=== PATIENT | female | born 1975 | race Caucasian/White ===

== ENCOUNTER 2020-10-03 10:44 | Emergency (ER) | payer OTHER, SELFPAY ==
--- NOTE | ~2020-10-03 | XR_ITS ---
EXAMINATION: XR chest 2V EXAM DATE: 10/03/2020 12:00 INDICATION: chest pain, sob-anterior chest pain radiating to right side since Saturday. TECHNIQUE: Frontal and lateral projections of the chest obtained and reviewed. There is no prior nadeen dy for comparison. FINDINGS: The lungs are clear. There are no pleural effusions. The cardiomediastinal silhouette is within normal limits. There is no pneumothorax suspected. The bones and soft tissues are unremarkab le. IMPRESSION: No acute cardiopulmonary findings. Reviewed, dictated and finalized at location A. ARY INFORMATION TECHNICIAN
--- NOTE | 2020-10-03 11:07 | ECG_ITS ---
Measurements Intervals [place] Rate: 104 P: 46 RI: 116 QRS: -3 QRSD: 89 T: 16 QT: 346 QTc: 457 Interpretive Statements SINUS TACHYCARDIA WITH SHORT RI INTERVAL INCOMPLETE RIGHT BUNDLE BRANCH BLOCK BORDERLINE T WAVE ABNORMALITY- INFERIOR LEADS ABNORMAL ECG Electronically Signed On 10-03-2020 11:26:21 GRILL ATTENDANT by Ilya Nuñez D.O.
[2020-10-03 11:08] VITALS: BP 135/66; PULSE 106; RESP 14; TEMP 36.8; O2SAT 99
[2020-10-03 11:13] VITALS: PULSE 106
[2020-10-03] MEDS: ASPIRIN 81 MG CHEWABLE TABLET 324 MG PO (11:28)
[2020-10-03 11:29] LABS: Basophils Percent Auto 0.3 % (0.2-1.2); Eosinophils Percent Auto 0.5 % (0-4.4); Hematocrit 38.8 % (37.0-47.0); Hemoglobin 12.6 g/dL (12.0-15.0); Immature Granulocyte Absolute 0.03 K/mm3 (0.00-0.031); Immature Granulocyte Percent A 0.3 % (0-0.5); Lymphocytes Absolute Auto 1.29 K/mm3 (0.9-3.2); Lymphocytes Percent Auto 14.6 % (18.3-44.2); Mean Corpuscular HGB Conc 32.5 g/dl (32-36); Mean Corpuscular Hemoglobin 27.1 pg (26-34); Mean Corpuscular Volume 83.4 fl (80-100); Mean Platelet Volume 9.4 fl (7.4-10.4); Monocytes Absolute Auto 0.5 K/mm3 (0.1-0.6); Monocytes Percent Auto 6.1 % (2.6-8.5); Neutrophils Absolute Auto 6.9 K/mm3 (1.3-6.7); Neutrophils Percent Auto 78.2 % (45.5-73.1); Platelet Count Result 312 k/mm3 (150-375); Red Blood Count 4.65 M/mm3 (4.2-5.4); Red Cell Distribution Width 13.6 % (11.5-14.5); White Blood Count 8.8 K/mm3 (4.5-10.0)
--- NOTE | 2020-10-03 11:35 | ED.ABDPAIN ---
HPI - Abdominal Pain General Chief Complaint: Chest Pain Stated Complaint: chest discomfort Time Seen by Provider: 10/03/20 10:59 History of Present Illness HPI narrative: Substernal burning chest pain with shooting pains that radiate to the right chest and scapula for several days. Worse today. She had a gall bladder US last week, but does not know the results. I spoke with Dr. Izaguirre and the ultrasound was negative. She also has some SOB which she believes is due t her anxiety. She has chronic anxiety, which is worse nw due to several external circumstances. Related Data Home Medications Medication Instructions Recorded Confirmed linaclotide [Linzess] mcg DAILY 10/03/20 Allergies Allergy/AdvReac Type Severity Reaction Status Date / Time No Known Allergies Allergy Mild Verified 10/03/20 11:15 Review of Systems Review of Systems: All systems reviewed & are unremarkable except as noted in HPI and below Constitutional: Constitutional: Denies chills, Denies fever(s) and Denies weakness ENT: Denies sore throat Cardiovascular: Cardiovascular: Reports chest pain and Reports rapid heart rate Respiratory: Respiratory: Reports dyspnea Gastrointestinal: Gastrointestinal: Reports abdominal pain, Denies constipation, Denies diarrhea, Reports nausea and Denies vomiting Genitourinary: Genitourinary: Denies hematuria and Denies dysuria Musculoskeletal: Musculoskeletal: Denies myalgias Neurologic: Denies numbness and Denies weakness Psychiatric: Psychiatric: Reports anxiety [facility] Past Medical History Medical History (Updated 10/03/20 @ 13:14 by Kris Penny MD) Anxiety Social History Social History (Updated 10/03/20 @ 13:14 by Kris Penny MD) Smoking status: Never smoker Gender identity (if verbalized by the patient): Female Exam Const: General: healthy appearing, no acute distress and alert Orientation/consciousness: patient oriented x3 HENMT: Head: normal to inspection Neck: Neck: normal visual inspection and no lymphadenopathy Chest: Chest palpation & inspection: no tenderness Resp: Effort & Inspection: normal respiratory effort Auscultation: clear to auscultation bilaterally, no rales, no rhonchi and no wheezes Cardio: Jugular venous distension: no JVD Rate: regular rate Rhythm: regular rhythm Heart sounds: no murmurs GI: Inspection: non-distended GI Palp: Yes Soft to palpation and No Tenderness to palpation present (GI) Skin: General skin exam: normal color Neuro: General: patient oriented x3, moves all extremities, no focal motor deficits and CN's II-XI intact bilaterally Speech: normal speech Gait exam (Neuro): Normal gait present Extrem: General: normal to inspection and no edema Psych: Appearance: well kempt Affect: Anxious affect present Course Vital Signs Vital signs: Vital Signs Temperature 36.8 C 10/03/20 11:08 Pulse Rate 106 H 10/03/20 11:08 Respiratory Rate 14 10/03/20 11:08 Blood Pressure 135/66 10/03/20 11:08 Pulse Oximetry 99 10/03/20 11:08 Temperature 36.8 C 10/03/20 11:08 Pulse Rate 109 H 10/03/20 12:35 Respiratory Rate 14 10/03/20 12:35 Blood Pressure 155/83 H 10/03/20 12:35 Pulse Oximetry 98 10/03/20 12:35 MDM - Abdominal Pain MDM Narrative Medical decision making narrative: GERD, gastritis, ulcer, anxiety Medical Records Attestation: I reviewed the patient's medical records. Lab Data Attestation: I reviewed the patient's lab results. Result diagrams: 10/03/20 11:19 10/03/20 11:19 Labs: Lab Results 10/03/20 10/03/20 10/03/20 Range/Units 11:19 11:19 11:19 WBC 8.8 (4.5-10.0) K/mm3 RBC 4.65 (4.2-5.4) M/mm3 Hgb 12.6 (12.0-15.0) g/dL Hct 38.8 (37.0-47.0) % MCV 83.4 (80-100) fl MCH 27.1 (26-34) pg MCHC 32.5 (32-36) g/dl RDW 13.6 (11.5-14.5) % Plt Count 312 (150-375) k/mm3 MPV 9.4 (7.4-10.4) fl Immature Gran % (Aut
[2020-10-03 11:37] LABS: INR 0.9; Prothrombin Time 13.1 Seconds (11.1-14.7)
[2020-10-03 11:39] LABS: Anion Gap 12 mmol/L (8-16); Blood Urea Nitrogen 8 mg/dL (7-17); Calcium 9.4 mg/dL (8.4-10.2); Carbon Dioxide 25 mmol/L (22-30); Chloride 106 mmol/L (98-107); Estimated CRCL calculation 79 ml/min; Estimated Glomerular Filt Rate > 60; Glucose 95 mg/dL (65-105); Potassium 3.9 mmol/L (3.4-5.0); Sodium 143 mmol/L (137-145)
[2020-10-03 11:51] LABS: Troponin I < 0.012 ng/mL (0.000-0.034)
[2020-10-03 12:13] LABS: Alanine Aminotransferase 13 U/L (4-35); Albumin Level 4.6 g/dL (3.5-5.1); Alkaline Phosphatase 84 U/L (38-126); Aspartate Amino Transferase 25 U/L (14-36); Bilirubin,Total 0.5 mg/dL (0.2-1.3)
[2020-10-03 12:35] VITALS: BP 155/83; PULSE 109; RESP 14; O2SAT 98
[2020-10-03 12:43] LABS: D Dimer 0.27 ug/mL (<0.48)
[2020-10-03 13:47] VITALS: BP 136/76; PULSE 95; RESP 9; O2SAT 97
== END 2020-10-03 13:48 | disposition home or self-care (01) ==
PROVIDERS: Emergency Provider Emergency Medicine; PCP Internal Medicine
DX: R07.89 Other chest pain (principal); F41.9 Anxiety disorder, unspecified; I45.10 Unspecified right bundle-branch block; R00.1 Bradycardia, unspecified; R94.31 Abnormal electrocardiogram [ECG] [EKG]
CPT/HCPCS: 36415; 71046; 80048; 80076; 84484; 85025; 85380; 85610; 85730; 93005; 99284; A9270

== ENCOUNTER 2022-06-01 09:17 | Outpatient (CLI) | payer OTHER, SELFPAY | END 2022-06-01 09:18 | disposition home or self-care (01) | LOC: ANHSURGERY 09:24 | PROVIDERS: PCP Internal Medicine; Visit Provider Obstetrics & Gynecology | DX: N85.2 Hypertrophy of uterus (principal); Z01.818 Encounter for other preprocedural examination | CPT/HCPCS: 36415; 86850; 86900; 86901 ==

== ENCOUNTER 2022-06-06 11:00 | Inpatient (IN) | payer OTHER, SELFPAY ==
[2022-05-29 15:22] VITALS: BMI 24.5
--- NOTE | 2022-05-29 15:29 | PC.NURSE ---
Report to the Outpatient Waiting Room, entrance under the green pavilion located off [facility], at time _06:00_ on date __06-06-22__. OR Time: __07:30AM__. - You and your visitor will be asked a series of questions to screen for COVID 19 for your protection. - Only one visitor is allowed at this time. - The patient visitor is requested to leave or wait in car when not with patient. - A mask is required within the hospital. Patients may have clear liquids (water, carbonated beverages, clear teas, apple juice) until 3 hours prior to surgery with a maximum of 20 ounces. NOTHING TO DRINK AFTER 4:30AM DAY OF SURGERY. - No food from midnight until time of surgery Take the following medications with a SIP of water the morning of surgery: N/A Medications to discontinue per physician VITAMINS/SUPPLEMENTS Date to take last tdyu [id number] Please no make-up, nail yemeni, hairspray, perfume, deodorant, or body powder the day of surgery. No jewelry (including any body piercings) or valuables the day of surgery, leave them at home. Please take a shower or bath the night before, or the morning of, surgery with an antibacterial soap. Wear comfortable, loose fitting clothing. - Jewelry must be removed prior to entering the operating room. Rings and piercings that are not removed may be cut off. - The hospital will not accept responsibility for valuables. - Please leave all valuables, including medications, at home the day of surgery. If you are going home after surgery, a licensed coach tour driver must drive you home. - NO public transportation without another adult. - We recommend that an adult stay with you for 24 hours following discharge. - We also recommend that you do not drive, make important decision, drink alcoholic beverages, or take any drugs that were not prescribed by your health care provider for at least 24 hours after your discharge time. Follow any additional instructions given to you from your surgeon. If you or anyone in your household have experienced Covid symptoms in the past week, please notify your surgeon or the nurse liaison at the phone number below for possible testing. Telephone instructions given to ____PATIENT and asked if any additional questions and then verbalized understanding. Patient advised to call surgeon office or pre surgery nurse liaison [phone] if any additional questions.
--- NOTE | 2022-06-05 09:09 | PM.IMHP ---
H&P: HPI History of Present Illness Date/Time: 06/05/22 09:09 46-year-old 2 para 2003 female presents with complaints of menstrual cycles lasting 5-7 days with 2-3 days very heavy with clotting cramping where she needs to change a pad and and a tampon every 1-2 hours, and still bleeds through at times. This is becoming worse over the past number of months to year and strongly desires therapy for this. She has had a recent ultrasound which shows enlarged uterus at 14x8x8, in addition there was a 6cm fibroid as well. Prep discussed multiple options and she does desire to proceed operative management in the form of hysterectomy with ovarian preservation. Due to previous C-sections there is the potential for supracervical procedure based on adhesions in the area of the cervix but this will be determined at the time of the procedure, she is aware of this possibility. Chief Complaint: Symptomatic uterine fibroid Review of Systems Review of Systems: All systems reviewed & are unremarkable except as noted in HPI and below PMFSH Past Medical History Medical History Anxiety History of IBS Migraines Surgical History Surgical History Delivery by section (06/17/08) primary c/s Delivery by section (04/06/15) rpt c/s H/O tubal ligation (~04/06/15) Social History Social History Smoking status: Never smoker Second hand tobacco smoke exposure: Yes ([employer]MENT [employer]ESTER) Alcohol intake: never Substance use: never Substance use type: does not use Gender identity (if verbalized by the patient): Female Spiritual care concerns: No Meds Home Medications and Allergies Home Medications Medication Instructions Recorded Confirmed Type famotidine 20 mg tablet (Pepcid) 20 mg PO DAILY #30 tabs 10/03/20 05/29/22 Rx linaclotide 72 mcg capsule 72 mcg PO PRN PRN Constipation 10/03/20 05/29/22 History (Linzess) cholecalciferol (vitamin D3) 25 25 mcg PO DAILY 05/29/22 05/29/22 History mcg (1,000 unit) capsule Allergies Allergy/AdvReac Type Severity Reaction Status Date / Time No Known Allergies Allergy Mild Verified 05/29/22 15:17 Exam Const: General: cooperative, healthy appearing and comfortable Resp: Effort & Inspection: normal respiratory effort Auscultation: clear to auscultation bilaterally Cardio: Rate: regular rate Rhythm: regular rhythm GI: Inspection: normal to inspection and incision : External Female Exam: normal external appearance Speculum Exam - Vagina: normal appearance of the vagina Speculum Exam - Cervix: normal appearance of the cervix Bimanual exam- vagina & uterus: enlarged ( 14-16 week size ) Bimanual Exam- Adnexa, other: normal adnexae Assessment and Plan Assessment and plan (1) Menometrorrhagia: Code(s): N92.1 - Excessive and frequent menstruation with irregular cycle Status: Acute Assessment and Plan: Proceed with abdominal hysterectomy with ovarian preservation. Whether this will be supracervical or total will be based on findings at time of the procedure patient is aware that she may have the cervix removed or may be retained depending on the amount of adhesions noted intraoperatively. (2) Uterine fibroid: Code(s): D25.9 - Leiomyoma of uterus, unspecified Status: Acute
--- NOTE | 2022-06-05 14:59 | P.PNAN_ITS ---
Anes - Initial Pre Proc Eval Procedure: Operation Date: 06/06/22 07:30 Proposed Procedures p Total Abdominal Hysterectomy - Harris Adkins MD Date/Time: 06/05/22 14:59 Surgeon: Harris Adkins MD Pre Op Diagnosis: Enlarged Uterus with Fibroid Patient Data Age: 46 Gender: F Height: 1.57 m Weight: 61 kg Allergies Allergy/AdvReac Type Severity Reaction Status Date / Time No Known Allergies Allergy Mild Verified 06/06/22 06:31 Home Medications Medication Instructions Recorded Confirmed Type famotidine 20 mg tablet (Pepcid) 20 mg PO DAILY #30 tabs 10/03/20 06/06/22 Rx linaclotide 72 mcg capsule 72 mcg PO PRN PRN Constipation 10/03/20 06/06/22 History (Linzess) cholecalciferol (vitamin D3) 25 25 mcg PO DAILY 05/29/22 06/06/22 History mcg (1,000 unit) capsule Patient hx anesthesia problems: none Family hx anesthesia problems: none Results Review: All pre-operative results and documents have been reviewed as part of the pre- operative evaluation. [facility] Past Medical History Medical History (Updated 06/05/22 @ 15:00 by Anthony Gonsalves MD) Anxiety History of IBS Leiomyoma Menometrorrhagia Migraines Pelvic pain Surgical History Surgical History Delivery by section (06/17/08) primary c/s Delivery by section (04/06/15) rpt c/s H/O tubal ligation (~04/06/15) Social History Social History Smoking status: Never smoker Second hand tobacco smoke exposure: Yes ([employer]) Alcohol intake: never Substance use: never Substance use type: does not use Living arrangements: with family Gender identity (if verbalized by the patient): Female Spiritual care concerns: No Anes - Eval Final PreProcedure Day of Procedure 06/05/22 14:59 Patient weight: normal Heart: regular rate and rhythm Lungs: clear to auscultation and normal air movement Airway: Mallampati scale class II Neurological: alert and oriented Last oral intake: >/= 8 hours ASA classification: II Emergent: no Anesthetic plan: proceed Anesthesia type and monitoring: general ETT Results Review: All pre-operative results and documents have been reviewed as part of the pre- operative evaluation. Informed Consent: The patient's anesthetic plan and its attendant risks and benefits were discussed with the patient/family/POA. Questions were solicited and answers provided to the satisfaction of the patient/family/POA.
[2022-06-06] VITALS (16 sets, daily range): BP systolic 116–150; BP diastolic 61–87; PULSE 80–114; RESP 12–18; TEMP 36.3–37.3; O2SAT 95–100
--- NOTE | ~2022-06-06 | CT_ITS ---
EXAMINATION: CT abdomen pelvis w con DATE: 06/07/2022 09:57 INDICATION: Low hemoglobin and hematocrit post hysterectomy. TECHNIQUE: Computed tomography (CT) of the abdomen and pelvis was performed with 100 CC Omnipaque 300 intravenous contrast. Automated exposure control and iterative reconstruction technique were employe d. Exam dose: 307.96 mGy-cm total exam DLP. COMPARISON: None. FINDINGS: There is mild atelectasis in the lower lobes. Normal heart size. No pericardial or pleural effusion. There is mild perihepatic, moderate perisplenic, Morison's pouch and bilateral right greater than lef t paracolic gutter fluid collection. The gallbladder is distended. No gallbladder wall thickening or pericholecystic fluid or fat strandin g. No bile duct or pancreatic duct dilatation. No hepatic, splenic, pancreatic, and adrenal or renal space-occupying mass lesion or laceration; ther e is an approximately 12 mm cyst at the lower pole of the right kidney. There is atherosclerotic calcification but normal caliber of the abdominal aorta. No intraperitoneal or retroperitoneal or pelvic mass lesion or adenopathy is noted. The urinary bladder is unremarkable except for slight amount of air within the lumen.. Status post hysterectomy. Likely postoperative intraperitoneal air. There is very prominent infraumbilical soft tissue thickening within the left and right rectus sheath s, likely due to hematoma, in addition to subcutaneous emphysema within the anterior abdominal wall m usculature and anterior lower abdominal and pelvic wall subcutaneous fat. Small fat and air-containing umbilical hernia. No bowel obstruction is detected. Included skeletal structures are unremarkable. IMPRESSION: Probable mild postoperative intraperitoneal free air. Mild fluid around the liver, spleen and in Morison's pouch and the paracolic gutters Prominent soft tissue swelling within the infraumbilical rectus sheaths, likely due to hematoma. Ther e is subcutaneous emphysema within the musculature and subcutaneous adipose tissues of the lower ante rior abdominal and pelvic pitts Reviewed, dictated and finalized at Location A. Reviewed, dictated and finalized at location B. IMPRESSION: Probable mild postoperative intraperitoneal free air. Mild fluid around the liver, spleen and in Morison's pouch and the paracolic gu tters Prominent soft tissue swelling within the infraumbilical rectus sheaths, likely due to hematoma. There is subcutaneous emphysema within the musculature and jacob bcutaneous adipose tissues of the lower anterior abdominal and pelvic pitts
[2022-06-06] MEDS: ACETAMINOPHEN 500 MG TABLET 1000 MG PO (06:31)
[2022-06-06] MEDS: KETOROLAC 15 MG/ML VIAL (*BKC) IV PUSH (06:42)
[2022-06-06] MEDS: LACTATED RINGERS 1,000 ML 30 ML IV CONT ×2 (06:42→09:03)
[2022-06-06] MEDS: MIDAZOLAM HCL (*CRX) 2 MG/2 ML VIAL IV PUSH (07:11)
--- NOTE | 2022-06-06 07:18 | WPDHPUPDATE1 ---
History and Physical Update Update Date/Time: 06/06/22 07:18 History and Physical has been reviewed, including an updated exam of the patient. There are NO changes in the patient's condition. Risks, benefits, and alternatives have been discussed and questions answered. Patient agrees to proceed with procedure.
[2022-06-06] MEDS: ceFAZolin 2 GM/D5W 50 ML 2 GM/50 ML BAG IVPB (07:27)
--- NOTE | 2022-06-06 08:52 | W.PM.PROC2 ---
Procedure Note - Detailed Date of Procedure 06/06/22 Pre-op Diagnosis Enlarged Uterus with Fibroid Post-op Diagnosis Same Procedure Performed Total abdominal hysterectomy with bilateral salpingectomy (cervix and uterus with a combined weight of 360 g) Surgeon Harris Adkins MD Anesthesia General Findings 1. Enlarged globular uterus with fundal fibroid. 2. Bladder adhesions to the anterior cervix 3. Ovaries without abnormality Description of Procedure Patient was prepped and draped in the usual manner for this procedure. Pfannenstiel incision was made which was readily carried down to the fascia and extended bilaterally the length of the skin incision. Superiorly and inferiorly the fascia was dissected away from the rectus muscles and the peritoneum was readily entered with enlarged uterus immediately encountered. The uterus was delivered through the incision with findings as noted above. Round ligament bilaterally clamped cut and tied and anterior portion of the broad ligament was incised down to bladder which was sharply dissected off of the anterior portion of the cervix and adhesions were sharply carefully taken down to allow the bladder to be free of the upper portion of the cervix. Broad ligament was then incised and curved Damaris clamps were placed over the utero-ovarian vessels and this was clamped cut tied rendered hemostasis bilaterally. Uterine vessels were then skeletonized and curved Damaris clamps placed across and again these clamped cut and tied and rendered hemostatic. The enlarged uterus removed at the cervical junction. Once this had been performed the bladder was sharply dissected off the rest of the anterior portion of the cervix and straight Damaris clamps were used on the paracervical tissue including the uterosacral ligament. Curved Magaly clamps were then placed across vaginal cuff and the cervix was removed. Vaginal cuff was closed using 0 Vicryl running interlocking manner to approximate and render hemostatic. Evaluation revealed no bleeding and no other abnormalities were appreciated. Irrigation was undertaken and at this point all subfascial incisions were inspected with no bleeding noted. Fascia was approximated using 0 Vicryl from the left angle to the midline in from the right angle to midline with good approximation noted. Subcutaneous tissue approximated 0 plain suture and skin was approximated using 4-0 Monocryl with skin glue. Patient was then sent to recovery room in stable condition. Estimated Blood Loss 200 Drains Yes (Stoner catheter) Pathology Yes (Uterus and cervix with a combined weight of 360 g) Disposition PACU [facility] Billing Surgery - Charge Forward: Surgery Billing
[2022-06-06] MEDS: fentaNYL CITRATE INJ (*CRX) 100 MCG/2 ML VIAL 25 MCG IV PUSH ×8 (09:08→09:57)
[2022-06-06] MEDS: diphenhydrAMINE HCl INJ 50 MG/ML VIAL 25 MG IV PUSH (09:21)
[2022-06-06] MEDS: ONDANSETRON INJ 4 MG/2 ML VIAL IV PUSH (09:51)
[2022-06-06] MEDS: HYDROmorphone HCL INJ (*CRX) 1 MG/ML SYR 0.5 MG IV PUSH ×2 (10:07→10:20)
[2022-06-06] MEDS: SCOPOLAMINE 1.5 MG PATCH TRANSDERM (10:14)
--- NOTE | 2022-06-06 11:05 | PC.NURSE ---
This patient, Rena Pizarro, was received from PACU via bed on 06/06/22 at 1105. Patient/family oriented to unit policies and routines
[2022-06-06] MEDS: KETOROLAC 30 MG/ML VIAL (*BKC) IV PUSH ×3 (11:34→23:25)
[2022-06-06] MEDS: METOCLOPRAMIDE HCL INJ 10 MG/2 ML VIAL IV PUSH ×2 (11:34→19:23)
[2022-06-06] MEDS: DEXTROSE 5%/0.45% SOD CHL 1,000 ML 125 ML IV CONT ×2 (11:35→19:20)
[2022-06-06] MEDS: MORPHINE SULFATE PCA (*CRX) 30 MG/30 ML SYR IV CONT (12:52)
[2022-06-06] MEDS: HYDROcodone/acetaminophen (*CRX) 10-325 MG TABLET 1 TAB PO ×4 (14:58→23:25)
[2022-06-07] VITALS (13 sets, daily range): BP systolic 105–126; BP diastolic 45–60; PULSE 104–120; RESP 16–18; TEMP 36.4–37.4; O2SAT 97–100
[2022-06-07] MEDS: HYDROcodone/acetaminophen (*CRX) 10-325 MG TABLET 1 TAB PO ×5 (03:20→21:31)
[2022-06-07] MEDS: KETOROLAC 30 MG/ML VIAL (*BKC) IV PUSH (05:27)
[2022-06-07] MEDS: SIMETHICONE 80 MG TAB.CHEW PO ×4 (07:45→21:31)
[2022-06-07 08:07] LABS: Basophils Percent Auto 0.2 % (0.2-1.2); Immature Granulocyte Absolute 0.08 K/mm3 (0.00-0.031); Immature Granulocyte Percent A 0.6 % (0-0.5); Lymphocytes Absolute Auto 1.52 K/mm3 (0.9-3.2); Lymphocytes Percent Auto 10.7 % (18.3-44.2); Mean Corpuscular HGB Conc 29.3 g/dl (32-36); Mean Corpuscular Hemoglobin 19.9 pg (26-34); Mean Platelet Volume 9.2 fl (7.4-10.4); Monocytes Absolute Auto 1.6 K/mm3 (0.1-0.6); Monocytes Percent Auto 11.5 % (2.6-8.5); Platelet Count Result 338 k/mm3 (150-375); Red Blood Count 2.56 M/mm3 (4.2-5.4); Red Cell Distribution Width 19.9 % (11.5-14.5); White Blood Count 14.3 K/mm3 (4.5-10.0)
[2022-06-07 08:52] LABS: Hematocrit 17.4 % (37.0-47.0); Hemoglobin 5.1 g/dL (12.0-15.0)
--- NOTE | 2022-06-07 09:04 | PM.GYNPNOP ---
GUI DEVELOPER - A/P Assessment and plan (1) Acute postoperative anemia due to expected blood loss: Code(s): D62 - Acute posthemorrhagic anemia Status: Acute Assessment and Plan: lab this morning shows a hemoglobin of 5. This is definitely inconsistent with amount of blood loss at the time of surgery so concern for intraoperative hematoma is significant. Imaging will be performed to assess for hematoma and size. Depending on findings at this point likely will need re-exploration, either via laparoscopy or reopening of her abdominal incision. This was briefly discussed with patient this morning prior to confirmation of the low level so have not discussed plan after imaging, will do so once the results are noted. Postoperative Procedures: Procedures Operation Date: 06/06/22 07:30 Actual Procedure Side Surgeon p Total Abdominal Hysterectomy with Ovarian Preservation Not Applicable Harris Adkins MD Time Spent With Patient Time: Total time spent is greater than 50% in coordination of care (as documented) at patient's floor/unit and/or counseling patient: Time with patient: less than 15 minutes GUI DEVELOPER- PN:Subj Post-Op Subjective Date/time seen: 06/07/22 09:04 patient seen this morning 1 day postop Status post KAYLI. Pain is reasonably well controlled though she did have a lot of pain and nausea and vomiting yesterday afternoon. Thus far she has tolerated a regular diet though appetite has been minimal. Catheters out this morning and she has yet to urinate. Did have some lightheadedness when getting to the side of the bed this morning. Exam GI: Inspection: normal to inspection and incision ( Bandage dry) Auscultation: Hypoactive bowel sounds present GUI DEVELOPER - PN: Obj Data Vital Signs Vital Signs: Vital Signs - 24 hr 06/06/22 09:15 06/06/22 09:30 06/06/22 09:45 Temperature Pulse Rate 82 84 94 Respiratory Rate 14 14 14 Blood Pressure 133/78 142/75 H 145/79 H Pulse Oximetry 98 96 97 Oxygen Delivery Simple Face Mask Nasal Cannula Nasal Cannula Oxygen Flow Rate 6 2 2 06/06/22 10:00 06/06/22 10:15 06/06/22 10:30 Temperature Pulse Rate 88 83 85 Respiratory Rate 12 12 12 Blood Pressure 138/75 148/84 H 150/87 H Pulse Oximetry 99 98 98 Oxygen Delivery Nasal Cannula Nasal Cannula Nasal Cannula Oxygen Flow Rate 2 2 2 06/06/22 10:45 06/06/22 10:55 06/06/22 13:01 Temperature 98.4 F Pulse Rate 89 90 Respiratory Rate 12 16 16 Blood Pressure 142/83 H 142/83 H Pulse Oximetry 99 98 Oxygen Delivery Nasal Cannula Nasal Cannula Oxygen Flow Rate 2 2 06/06/22 11:10 06/06/22 15:10 06/06/22 15:00 Temperature 98.4 F 99.2 F Pulse Rate 103 H 110 H Respiratory Rate 16 16 18 Blood Pressure 116/61 148/64 H Pulse Oximetry 100 95 95 Oxygen Delivery Oxygen Flow Rate 06/06/22 19:20 06/06/22 19:20 06/06/22 23:25 Temperature 98.9 F 98.8 F Pulse Rate 114 H 98 Respiratory Rate 18 18 Blood Pressure 136/61 130/71 Pulse Oximetry Oxygen Delivery Room Air Oxygen Flow Rate 06/06/22 23:25 06/07/22 03:30 06/07/22 03:30 Temperature 98.1 F Pulse Rate 113 H Respiratory Rate 16 Blood Pressure 105/60 Pulse Oximetry Oxygen Delivery Room Air Room Air Oxygen Flow Rate Intake/Output Intake/Output: Intake & Output 06/04/22 06/05/22 06/06/22 06/07/22 23:59 23:59 23:59 23:59 Intake Total 1900 1300 Output Total 1160 1100 Balance 740 200 Meds/Results Medications: Active Medications Generic Name Dose Route Start Last Admin Trade Name Freq PRN Reason Stop Dose Admin Hydrocodone Bitart/Acetaminophen 1 tab 06/06/22 11:00 Hydrocodone/Acetaminophen (*Crx) 5-325 Mg Tablet PO Q3H PRN Pain Rated 5 or Less Hydrocodone Bitart/Acetaminophen 1 tab 06/06/22 11:00 06/07/22 03:20 Hydrocodone/Acetaminophen (*Crx) 10-325 Mg Tablet PO 1 tab Q3H PRN Administration Pain Rated 6 or Greater Docusate Sodium 100 mg 06/06/22 21:00 07
[2022-06-07] MEDS: DEXTROSE 5%/0.45% SOD CHL 1,000 ML 125 ML IV CONT (09:11)
--- NOTE | 2022-06-07 09:43 | PC.NURSE ---
CT here to take pt per stretcher.
[2022-06-07 09:50] LABS: Estimated CRCL calculation 60 ml/min; Estimated Glomerular Filt Rate > 60
[2022-06-07] MEDS: ONDANSETRON INJ 4 MG/2 ML VIAL IV PUSH (10:34)
--- NOTE | 2022-06-07 17:41 | P.PNAN_ITS ---
Anes - Prog Note Post-Op Date/Time: 06/07/22 17:41 Cardiovascular status: normal Respiratory status: normal Airway patency: baseline Mental status: baseline Post-Op hydration status: normal Vital Signs: Last Vital Signs Temp 36.9 C 06/07/22 16:23 Pulse 107 H 06/07/22 16:23 Resp 16 06/07/22 16:23 BP 122/52 L 06/07/22 16:23 Pulse Ox 97 06/07/22 16:23 O2 Del Method Room Air 06/07/22 03:30 O2 Flow Rate 2 06/06/22 10:55 Pain Score (VAS): 0 I/O: Intake & Output 06/07/22 06/07/22 06/07/22 07:59 15:59 23:59 Intake Total 1300 700 300 Output Total 1100 125 500 Balance 200 575 -200 Laboratory Tests 06/07/22 07:52 06/07/22 09:49 06/07/22 06/07/22 06/07/22 07:52 09:49 10:45 WBC 14.3 H RBC 2.56 L Hgb 5.1 L* D Hct 17.4 L* MCV 68.0 L MCH 19.9 L MCHC 29.3 L RDW 19.9 H Plt Count 338 MPV 9.2 Immature Gran % (Auto) 0.6 H Neut % (Auto) 77.0 H Lymph % (Auto) 10.7 L [place] % (Auto) 11.5 H Eos % (Auto) 0.0 Baso % (Auto) 0.2 Lymph # (Auto) 1.52 [place] # (Auto) 1.6 H Eos # (Auto) 0.0 Baso # (Auto) 0.0 Abs Immat Gran (auto) 0.08 H Absolute Neuts (auto) 11.0 H Absolute Nucleated RBC 0.0 Nucleated RBC % 0.0 Creatinine 0.80 Estim Creat Clear Calc 60 Estimated GFR > 60 Blood Type O Positive Antibody Screen Negative Crossmatch See Detail Patient Feedback: Patient satisfied with anesthetic care.
[2022-06-07] MEDS: DOCUSATE SODIUM 100 MG CAPSULE PO (21:31)
[2022-06-07] MEDS: IBUPROFEN 600 MG TABLET PO (21:31)
[2022-06-08] MEDS: HYDROcodone/acetaminophen (*CRX) 10-325 MG TABLET 1 TAB PO (04:00)
[2022-06-08] MEDS: SIMETHICONE 80 MG TAB.CHEW PO (04:00)
[2022-06-08] MEDS: IBUPROFEN 600 MG TABLET PO ×2 (04:00→11:04)
[2022-06-08 06:00] LABS: Hematocrit 31.2 % (37.0-47.0); Hemoglobin 9.7 g/dL (12.0-15.0); Mean Corpuscular HGB Conc 31.1 g/dl (32-36); Mean Corpuscular Hemoglobin 23.9 pg (26-34); Mean Corpuscular Volume 76.8 fl (80-100); Mean Platelet Volume 9.8 fl (7.4-10.4); Platelet Count Result 231 k/mm3 (150-375); Red Blood Count 4.06 M/mm3 (4.2-5.4); Red Cell Distribution Width 19.5 % (11.5-14.5); White Blood Count 10.3 K/mm3 (4.5-10.0)
[2022-06-08 07:35] VITALS: BP 135/66; PULSE 97; RESP 18; TEMP 37.1; O2SAT 100
--- NOTE | 2022-06-08 10:18 | PM.GYNPNOP ---
LIBRARY ASSOCIATE - A/P Postoperative Procedures: Procedures Operation Date: 06/06/22 07:30 Actual Procedure Side Surgeon p Total Abdominal Hysterectomy with Ovarian Preservation Not Applicable Harris Adkins MD Time Spent With Patient Time: Total time spent is greater than 50% in coordination of care (as documented) at patient's floor/unit and/or counseling patient: Time with patient: less than 15 minutes LIBRARY ASSOCIATE- PN:Subj Post-Op Subjective Date/time seen: 06/08/22 10:18 POD 2 Tolerating regular diet/pain well controlled. Up without difficulty. Has had a BM. Exam GI: Other: +BS/soft/non distended dressing dry LIBRARY ASSOCIATE - PN: Obj Data Vital Signs Vital Signs: Vital Signs - 24 hr 06/07/22 13:35 06/07/22 13:50 06/07/22 14:50 Temperature 99.3 F 98.6 F 98.8 F Pulse Rate 120 H 114 H 113 H Respiratory Rate 18 18 16 Blood Pressure 126/49 L 123/52 L 118/47 L Pulse Oximetry 100 99 100 Oxygen Delivery 06/07/22 15:55 06/07/22 16:23 06/07/22 17:38 Temperature 98.2 F 98.4 F 98.5 F Pulse Rate 106 H 107 H 106 H Respiratory Rate 16 16 16 Blood Pressure 120/49 L 122/52 L 126/52 L Pulse Oximetry 100 97 100 Oxygen Delivery 06/07/22 16:38 06/07/22 19:17 06/07/22 19:17 Temperature 98.2 F 97.5 F L 97.5 F L Pulse Rate 107 H 104 H 104 H Respiratory Rate 16 16 16 Blood Pressure 111/45 L 119/50 L 119/50 L Pulse Oximetry 100 100 100 Oxygen Delivery 06/07/22 19:17 06/07/22 20:10 06/07/22 20:25 Temperature 97.5 F L 97.5 F L 97.8 F Pulse Rate 104 H 104 H 110 H Respiratory Rate 16 16 16 Blood Pressure 119/50 L 119/50 L 122/54 L Pulse Oximetry 100 100 100 Oxygen Delivery 06/07/22 21:25 06/08/22 07:32 06/08/22 07:35 Temperature 97.8 F 98.8 F Pulse Rate 110 H 97 Respiratory Rate 16 18 Blood Pressure 122/54 L 135/66 Pulse Oximetry 99 100 Oxygen Delivery Room Air Intake/Output Intake/Output: Intake & Output 06/05/22 06/06/22 06/07/22 06/08/22 23:59 23:59 23:59 23:59 Intake Total 1900 3900 Output Total 1160 2925 Balance 740 975 Meds/Results Medications: Active Medications Generic Name Dose Route Start Last Admin Trade Name Freq PRN Reason Stop Dose Admin Hydrocodone Bitart/Acetaminophen 1 tab 06/06/22 11:00 Hydrocodone/Acetaminophen (*Crx) 5-325 Mg Tablet PO Q3H PRN Pain Rated 5 or Less Hydrocodone Bitart/Acetaminophen 1 tab 06/06/22 11:00 06/08/22 04:00 Hydrocodone/Acetaminophen (*Crx) 10-325 Mg Tablet PO 1 tab Q3H PRN Administration Pain Rated 6 or Greater Docusate Sodium 100 mg 06/06/22 21:00 06/07/22 21:31 Docusate Sodium 100 Mg Capsule PO 100 mg Q12HR DEVON Administration Famotidine 20 mg 06/06/22 11:00 06/07/22 17:45 Famotidine 20 Mg Tablet PO Not Given DAILY DEVON Morphine Sulfate 30 mg in 30 mls @ 0 mls/hr 06/06/22 09:09 06/06/22 15:00 Morphine Sulfate Catering Staff Member IV CONT 1 mg/hr PRN PRN 1 mls/hr MERCHANDISING STOCK ASSOCIATE Management Titration Protocol Per Protocol Dextrose/Sodium Chloride 1,000 mls @ 125 mls/hr 06/06/22 11:00 06/07/22 09:11 Dextrose 5% Sodium Chloride 0.45% IV CONT 125 mls/hr .Q8H DEVON Administration Ibuprofen 600 mg 06/06/22 11:00 06/08/22 04:00 Ibuprofen 600 Mg Tablet PO 600 mg Q6H PRN Administration Cramping Ketorolac Tromethamine 30 mg 06/06/22 11:00 06/07/22 05:27 Ketorolac 30 Mg/Ml Vial (*Bkc) IV PUSH 06/11/22 10:59 30 mg Q6H PRN Administration Pain Rated 4-6 Metoclopramide HCl 10 mg 06/06/22 11:23 06/06/22 19:23 Metoclopramide Hcl Inj 10 Mg/2 Ml Vial IV PUSH 10 mg Q6HR PRN Administration Nausea And Vomiting Morphine Sulfate 4 mg 06/06/22 11:00 Morphine Sulfate (*Crx) 4 Mg/Ml Inj IV PUSH Q4H PRN Pain Rated 7-10 Naloxone HCl 0.1 mg 06/06/22 11:00 Naloxone Hcl 0.4 Mg/Ml Vial IV PUSH Q2M PRN Respiratory rate less than 10 Ondansetron HCl 4 mg 06/06/22 11:00 06/07/22 10:34 Ondansetron Inj 4 Mg/2 Ml Vial IV
[2022-06-08] MEDS: DOCUSATE SODIUM 100 MG CAPSULE PO (11:04)
[2022-06-08] MEDS: FAMOTIDINE 20 MG TABLET PO (11:05)
[2022-06-08] MEDS: CHOLECALCIFEROL 1,000 UNITS TABLET 1000 UNITS PO (11:05)
--- NOTE | 2022-06-08 11:10 | PC.NURSE ---
Discharge instructions given along with instructions on when to remove scopalomine patch and dressing. Pt. verbalizes understanding, saline lock removed and abdominal binder given
--- NOTE | 2022-06-12 18:02 | PM.DS ---
DS: Admitting Diagnosis Discharge Date 06/08/22 Admitting Diagnosis symptomatic fibroid uterus DS: Discharge Diagnosis Discharge Diagnosis (1) Pelvic pain: Code(s): R10.2 - Pelvic and perineal pain Status: Acute (2) Menometrorrhagia: Code(s): N92.1 - Excessive and frequent menstruation with irregular cycle Status: Acute (3) Uterine fibroid: Code(s): D25.9 - Leiomyoma of uterus, unspecified Status: Acute (4) Acute postoperative anemia due to expected blood loss: Code(s): D62 - Acute posthemorrhagic anemia Status: Acute (5) Postoperative pain: Code(s): G89.18 - Other acute postprocedural pain Status: Acute DS: Summary Hospital Course Hospital Course: 46 year old female admitted for abdominal hysterectomy which she underwent without significant complication. Postoperatively had a significant blood loss with hemoglobin of 5 on the 1st postoperative day. CT scan is on the chart and revealed rectus muscle hematoma which was contained and non drainable. She received 3units of packed red blood cells which brought her hemoglobin to approximately 10 and on the 2nd postoperative day was feeling significantly improved. She is tolerating regular diet she had had a bowel movement and pain was well controlled. Physical exam was benign with good bowel sounds and appropriate tenderness. No masses were palpated in the abdominal wall or specifically in the incision line. Time Spent with Patient Time attestation: Total time spent providing and/or coordinating discharge services: DS: Data Data Completed and Pending Completed studies during hospitalization: Pending at discharge 06/06/22 08:41 Surgical [PTH] Routine Discharge Plan Discharge Consulting providers: Rehan Bello Discharging Clinician: Harris Adkins Patient Disposition: Home, Self-Care Activity: as tolerated Diet: as tolerated Wound Care Instructions: keep dressing dry Discharge Instructions: ok to remove dressing next few days Patient Instructions: Antibiotic Form, Hysterectomy (DC) Stand Alone Forms: General Discharge Information Follow-up/Referrals: Harris Adkins MD [Physician] - 2 Weeks Discharge Medications: New hydrocodone-acetaminophen 5-325 mg Tablet 1 tablet PO Q3H PRN (Reason: Pain Rated 5 Or Less) Qty: 30 0RF ibuprofen 600 mg Tablet 600 mg PO Q6H PRN (Reason: Cramping) Qty: 30 0RF Continued Linzess 72 mcg capsule 72 mcg PO PRN PRN (Reason: Constipation) famotidine [Pepcid] 20 mg tablet 20 mg PO DAILY Qty: 30 0RF cholecalciferol (vitamin D3) 25 mcg (1,000 unit) Capsule 25 mcg PO DAILY Date of admission: 06/06/22 11:00 Primary Care Provider: Kt,Remington Yougn Admitting Provider: Harris Adkins Attending physician on admission: Harris Adkins Condition: Stable
== END 2022-06-08 11:16 | disposition home or self-care (01) | DRG 742 ==
LOC: ANHOB2 06-08 10:24
PROVIDERS: Admitting Provider Obstetrics & Gynecology; PCP Internal Medicine; Visit Provider Obstetrics & Gynecology
PROC: 0UT94ZZ Resection of Uterus, Percutaneous Endoscopic Approach (ICD-10-PCS; principal; 2022-06-06 07:30)
DX: D25.9 Leiomyoma of uterus, unspecified (principal); D62 Acute posthemorrhagic anemia; N92.1 Excessive and frequent menstruation with irregular cycle; N32.89 Other specified disorders of bladder; F41.9 Anxiety disorder, unspecified; K58.9 Irritable bowel syndrome, unspecified
CPT/HCPCS: 36415; 36430; 74177; 85025; 85027; 86850; 86900; 86901; 86920; 88307; A9270; J0690; J1100; J1170; J1200; J1885; J2250; J2270; J2370; J2405; J2704; J2710; J2765; J3010; J7120; P9016; Q9967